=== PATIENT | female | born 1990 | race Asian ===

== ENCOUNTER 2018-02-15 17:37 | Emergency (ER) | payer OTHER ==
[2018-02-15 18:10] LABS: URINE HCG POC HCG NEGATIVE (Negative)
[2018-02-15 18:16] LABS: BILIRUBIN,URINE NEGATIVE (NEG); CLARITY,URINE CLEAR; COLOR,URINE YELLOW; GLUCOSE,URINE NEGATIVE (NEG); NITRITE,URINE NEGATIVE (NEG); PH,URINE 6.5; PROTEIN,URINE NEGATIVE (NEG-TRACE); UROBILINOGEN,URINE 0.2 mg/dL (0.2 mg/dL)
[2018-02-15 18:45] LABS: RBC,URINE 0 /HPF (0-2)
[2018-02-15 18:46] LABS: BACTERIA,URINE FEW /HPF (0-FEW); SQUAMOUS EPITHELIAL CELL,UR OCC /LPF; WBC,URINE RARE /HPF (0-4)
[2018-02-16 05:45] LABS: NEGATIVE OBC STREP NEG; POSITIVE OBC STREP POS
== END 2018-02-15 18:54 | disposition home or self-care (01) ==
LOC: ER 17:37
DX: J02.9 Acute pharyngitis, unspecified (principal)
CPT/HCPCS: 81001; 81025; 87070; 87880; 99284

== ENCOUNTER 2018-08-16 22:17 | Emergency (ER) | payer OTHER ==
[~2018-08-16] VITALS: Ht 162.6 cm; Wt 59.0 kg
[2018-08-16 22:33] VITALS: BP 134/85
--- NOTE | 2018-08-16 23:17 | PHYS DOC ---
Past Medical History Past Medical History: No Pertinent History Past Surgical History: No Surgical History Alcohol Use: None Drug Use: None Adult General Chief Complaint Chief Complaint: LOWER EXT PAIN HPI HPI Patient is a 28 year old female who presents with an exacerbation of her chronic sciatica pain. The patient is having pain radiating down through her left buttock. Her is translating for her and states that this is been an ongoing chronic problem. She denies spontaneous loss of bowel or bladder, saddle numbness or foot drop. She denies any known injury. Review of Systems Review of Systems Constitutional: Denies fever or chills [] Eyes: Denies change in visual acuity, redness, or eye pain [] HENT: Denies nasal congestion or sore throat [] Respiratory: Denies cough or shortness of breath [] Cardiovascular: No additional information not addressed in HPI [] GI: Denies abdominal pain, nausea, vomiting, bloody stools or diarrhea [] : Denies dysuria or hematuria [] Musculoskeletal: See history of present illness Integument: Denies rash or skin lesions [] Neurologic: Denies headache, focal weakness or sensory changes [] Endocrine: Denies polyuria or polydipsia [] All other systems were reviewed and found to be within normal limits, except as documented in this note. Current Medications Current Medications Current Medications Medications (Trade) Dose Ordered Sig/[facility] Start Time Stop Time Status Last Admin Dose Admin Ketorolac Tromethamine (Toradol Im) 60 mg 1X ONCE 08/16/18 23:30 08/16/18 23:30 DC 08/16/18 23:06 60 MG Methylprednisolone Acetate (DEPO-Medrol 80MG VIAL) 80 mg 1X ONCE 08/16/18 23:30 08/16/18 23:30 DC 08/16/18 23:06 80 MG Allergies Allergies Allergies Coded Allergies Type Severity Reaction Last Updated Verified No Known Drug Allergies 02/15/18 No Physical Exam Physical Exam Constitutional: Well developed, well nourished, no acute distress, non-toxic appearance. [] Cardiovascular:Heart rate regular rhythm, no murmur [] Lungs & Thorax: Bilateral breath sounds clear to auscultation [] Abdomen: Bowel sounds normal, soft, no tenderness, no masses, no pulsatile masses. [] Skin: Warm, dry, no erythema, no rash. [] Back: tenderness over left sciatic area radiating into the left buttock, no CVA tenderness. [] Extremities: No tenderness, no cyanosis, no clubbing, ROM intact, no edema. [] Neurologic: Alert and oriented X 3, normal motor function, normal sensory function, no focal deficits noted. [] Psychologic: Affect normal, judgement normal, mood normal. [] Current Patient Data Vital Signs Vital Signs Date Time Temp Pulse Resp B/P (MAP) Pulse Ox O2 Delivery O2 Flow Rate FiO2 08/16/18 22:33 98.6 96 18 134/85 (101) 95 Room Air 98.6 Lab Values Laboratory Tests Test 08/16/18 22:52 POC Urine HCG, Qualitative Hcg negative (Negative) EKG EKG [] Radiology/Procedures Radiology/Procedures [] Course & Med Decision Making Course & Med Decision Making Pertinent Labs and Imaging studies reviewed. (See chart for details) []The patient was given Toradol and Depo-Medrol in the emergency department. Dragon Disclaimer Dragon Disclaimer This electronic medical record was generated, in whole or in part, using a voice recognition dictation system. Departure Departure Impression: Primary Impression: Sciatica Disposition: 01 HOME, SELF-CARE Condition: STABLE Referrals: UNKNOWN PCP NAME (PCP) Patient Instructions: Sciatica Additional Instructions: The medications that should control her pain and inflammation. If she is not improving in 3-4 days she needs to follow-up with her primary care provider or return to the emergency department if worsening. JOVANNY MIRZA APRN Aug 16, 2018 23:17
[2018-08-16] MEDS ORDERED: methylPREDNISolone ACETATE 80 MG/ML VIAL. IM ONE (23:30)
[2018-08-16] MEDS ORDERED: KETOROLAC 60 MG/2 ML INJ. IM ONE (23:30)
== END 2018-08-16 23:20 | disposition home or self-care (01) ==
LOC: ER 22:17
DX: G89.29 Other chronic pain (principal); M54.42 Lumbago with sciatica, left side
CPT/HCPCS: 81025; 96372; 99283; J1040; J1885

== ENCOUNTER → 2018-10-21 | Emergency (ER) | payer OTHER ==
[~2018-10-21] VITALS: Ht 157.5 cm; Wt 59.0 kg
[~2018-10-21] MED LIST: CYCL10TA2 PO; NAPR-514 PO
[2018-10-21 20:45] VITALS: BP 103/68
[2018-10-21] MEDS: KETOROLAC 30 MG/ML VIAL. IM ONE (21:10)
--- NOTE | 2018-10-21 21:16 | PHYS DOC ---
Past Medical History Past Medical History: No Pertinent History Additional Past Medical Histor: CHRONIC R HIP PAIN Past Surgical History: No Surgical History Alcohol Use: None Drug Use: None Adult General Chief Complaint Chief Complaint: HIP PAIN HPI HPI Patient is a 28 year old female, accompanied by her , who presents to the emergency room with complaints of right hip pain for the last 3 days. Patient reports history of chronic right hip pain that she is currently in physical therapy that was prescribed by her primary care provider for. She denies any new injury, numbness, tingling, or weakness. She states that the pain increases with movement of her leg. She has come to the ER before and received shots for pain relief. Review of Systems Review of Systems Constitutional: Denies fever or chills [] Musculoskeletal: reports R low back pain that radiates to R hip and increases with movement x3 days, denies injury Integument: Denies rash or skin lesions [] Neurologic: Denies headache, focal weakness or sensory changes [] Allergies Allergies Allergies Coded Allergies Type Severity Reaction Last Updated Verified No Known Drug Allergies 02/15/18 No Physical Exam Physical Exam Constitutional: Well developed, well nourished, no acute distress, non-toxic appearance. [] HENT: Normocephalic, atraumatic, bilateral external ears normal, nose normal. [] Eyes: PERRLA, conjunctiva normal, no discharge. [] Neck: Normal range of motion,, no stridor. [] Skin: Warm, dry, no erythema, no rash. [] Back: No bony tenderness, R lumbar paraspinal tenderness that radiates to R hip , R straight leg lift positive. Extremities: No cyanosis, ROM intact, no edema. [] Neurologic: Alert and oriented X 3, normal motor function, normal sensory function, no focal deficits noted. [] Psychologic: Affect normal, judgement normal, mood normal. [] Current Patient Data Vital Signs Vital Signs Date Time Temp Pulse Resp B/P (MAP) Pulse Ox O2 Delivery O2 Flow Rate FiO2 10/21/18 20:45 98.6 75 20 103/68 (80) 99 Room Air 98.6 EKG EKG [] Radiology/Procedures Radiology/Procedures [] Course & Med Decision Making Course & Med Decision Making Pertinent Labs and Imaging studies reviewed. (See chart for details) Dx: sciatica PT was given 30 mg of IM toradol, LMP was 10/15/18. Prescriptions for naproxen and flexeril written. Follow up with PCP if sx persist, return to ER if sx worsen. Patient verbalized an understanding of home care, medications, follow-up, and return to ED instructions and was in agreement with the plan of care. [] Dragon Disclaimer Dragon Disclaimer This electronic medical record was generated, in whole or in part, using a voice recognition dictation system. Departure Departure Impression: Primary Impression: Right-sided low back pain with right-sided sciatica Disposition: HOME, SELF-CARE Condition: STABLE Referrals: UNKNOWN PCP NAME (PCP) Patient Instructions: Sciatica, [id number] Additional Instructions: Fill prescriptions and use them as directed. Follow-up with your primary care doctor if symptoms persist, return to the ER if they worsen. Scripts Cyclobenzaprine Hcl (CYCLOBENZAPRINE HCL) 10 Mg Tablet 10 MG PO TID PRN for PAIN for 10 Days, #30 TAB 0 Refills Prov: ANDRE OLIVER APRN 10/21/18 Naproxen (NAPROXEN) 500 Mg Tablet 500 MG PO BID PRN for PAIN for 10 Days, #20 TAB 0 Refills Prov: ANDRE OLIVER APRN 10/21/18 Problem Qualifiers Primary Impression: Right-sided low back pain with right-sided sciatica Chronicity: unspecified Qualified Codes: M54.41 - Lumbago with sciatica, right side ANDRE OLIVER APRN Oct 21, 2018 21:16
== END ==
LOC: ER 20:42
DX: M54.41 Lumbago with sciatica, right side (principal); G89.29 Other chronic pain; M25.551 Pain in right hip
CPT/HCPCS: 96372; 99283; J1885